=== PATIENT | female | born 1990 | race American Indian/Alaskan Native ===

== ENCOUNTER 2018-06-10 00:58 | Outpatient (CLI) | payer MEDICAID ==
[2018-06-10 01:12] VITALS: BP 122/80
[2018-06-10] MEDS ORDERED: VISTARIL PO ONE (01:58)
--- NOTE | 2018-06-16 22:09 | History and Physical Report ---
History of Present Illness Date of examination: 06/14/18 Date of admission: 06/17/18 Chief complaint: here for cs History of present illness: Pt here for elective primary c/s due to having EFW of 10lbs 14oz.Pt adviseed of all risk. Consents signed and placed on the chart. EDC Confirmation: 06/17/2018 Gestational Age: 24 4/7 weeks Past History : 6 Term Births: 2 Premature Births: 0 Living Children: 2 Para: 2 Mult. Births: 0 Prev : 0 Aborta: 3 Elect. Ab: 3 Spont. Ab: 0 Ectopics: 0 # 1 Delivery date: 2008 Weeks Gestation: term labor: no Delivery type: Infant Sex: Male weight: 5#7 # 2 Delivery date: 2015 Weeks Gestation: term labor: no Delivery type: Sex: Female weight: 7#6 Comments: IOL for GDM # 3 Delivery type: EAB # 4 Delivery type: EAB # 5 Delivery type: EAB Past Medical History: Negative Past Medical History Past Surgical History: D&C x 3 Past Medical History Anesthesia Complications: negative Anemia: negative Autoimmune Disorder: negative Bleeding Disorder: negative Blood Transfusions: negative Breast Disease: negative Diabetes: negative Heart Disease: negative Hypertension: negative Hepatitis/Liver Disease: negative Kidney Disease/UTI: negative Neurologic/Epilepsy/Migraines: negative Phlebitis/Varicosities: negative Psychiatric: negative Pulmonary Disease/Asthma: negative Thyroid Disease: negative Hospitalizations: negative Surgery (Non-manager health): D&C x 3 Abnormal PAP: negative Family Hx: htn - mother, MGM no known hx cancer Social Hx: [place] no ETOH/Drugs/smoking Infection History Hx of STD: CT and Trich HIV Risk Eval: no Hepatitis B Risk Eval: low risk Personal hx. of genital herpes: no Partner hx. of genital herpes: no Rash, Viral, or Febrile illness since last LMP? no Varicella/Chicken Pox Status: Previous Disease Genetic History Congenital Heart Defect: Mom: no Dad: no Gab Disease: Mom: no Dad: no Thalassemia Mom: no Dad: no Neural Tube Defect Mom: no Dad: no Down's Syndrome Mom: no Dad: no Main-Sachs Mom: no Dad: no Sickle Cell Disease/Trait Mom: no Dad: no Hemophilia Mom: no Dad: no Muscular Dystrophy Mom: no Dad: no Cystic Fibrosis Mom: no Dad: no Fariba Chorea Mom: no Dad: no Mental Retardation Mom: no Dad: no Fragile X Mom: no Dad: no Other Genetic/Chromosomal Disorder Mom: no Dad: no Child w/other defect Mom: no Dad: no Enviromental Exposures Xray Exposure: no Medication, drug, or alcohol use since LMP: no Chemical/Other Exposure: no Exposure to Cat Liter: no Hx of Parvovirus (Fifth Disease): no Occupational Exposure to Children: none Active Medications (reviewed today): None Current Allergies (reviewed today): No known allergies. 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 Family/Genetic History: none Social history: no significant social history, - Obstetrical History Expected Date of Delivery: 06/17/18 Actual Gestation: 39 Week(s) 6 Day(s) : 6 Para: 2 Number of Living Children: 2 Medications and Allergies Allergies Allergy/AdvReac Type Severity Reaction Status Date / Time No Known Allergies Allergy Verified 06/10/18 01:34 Home Medications Medication Instructions Recorded Confirmed Last Taken Type No Known Home Medications [No 06/10/18 06/10/18 Unknown History Reported Home Medications] Review of Systems All systems: negative - Vital Signs Vital signs: Vital Signs Pulse BP 96 H 122/80 06/10/18 01:11 06/10/18 01:11 Temp Pulse Resp BP Pulse Ox 98.7 F 96 H 20 122/80 06/10/18 01:24 06/10/18 01:24 06/10/18 01:24 06/10/18 01:24 - Physical Exam Cardiovascular: Normal S1, Normal S2 Lungs: Positive: Normal air movement Abdomen: Positive: normal appearance, soft. Negative: distention, tenderness, guarding Genitourinary (Female): Positive: other (deferred) - Obstetrical FHR: auscultation normal Results All other labs normal. Assessment and Plan - Patient Problems (1) 39 weeks gestation of Status: Acute (2) Macrosomia affecting management of mother Status: Acute Qualifiers: Fetus number: single or unspecified fetus Plan to address problem: -admit and prepare for c/s -consents signed and placed on the chart
[2018-06-16] MEDS ORDERED: PITOCin/NS 20 UNIT/1000ML DRIP 20 UNITS/1,000 ML BAG IV SCH (23:00)
[2018-06-16] MEDS ORDERED: LACTATED RINGERS 1,000 ML IV SCH (23:00)
[2018-06-17] MEDS ORDERED: BICITRA PO ONE (05:00)
[2018-06-17] MEDS ORDERED: ANCEF/STERILE WATER 2 GM/20 ML 2 GM/20 ML SYRINGE IV NR (05:00)
[2018-06-17] MEDS ORDERED: REGLAN IV ONE (05:00)
[2018-06-17] MEDS ORDERED: PEPCID IV ONE (05:00)
[2018-06-17 07:37] LABS: Basophils % (Auto) 0.3 % (0.0-1.8); Eosinophils % (Auto) 0.3 % (0.0-4.3); Hematocrit 32.8 % (30.3-42.9); Hemoglobin 11.4 gm/dl (10.1-14.3); Lymphocytes # (Auto) 2.8 K/mm3 (1.2-5.4); Mean Corpuscular HGB Conc 35 % (30-34); Mean Corpuscular Volume 94 fl (79-97); Monocytes # (Auto) 0.6 K/mm3 (0.0-0.8); Monocytes % (Auto) 6.2 % (0.0-7.3); Platelet Count 268 K/mm3 (140-440); Red Blood Count 3.49 M/mm3 (3.65-5.03); Red Cell Distribution Width 14.1 % (13.2-15.2)
== END 2018-06-10 02:23 | disposition home or self-care (01) ==
LOC: TRG 00:58
PROVIDERS: ATTEND Obstetrics & Gynecology
DX: O62.8 Other abnormalities of forces of labor (principal); O24.410 Gestational diabetes mellitus in pregnancy, diet controlled; Z3A.39 39 weeks gestation of pregnancy
CPT/HCPCS: 59025; Q0177

== ENCOUNTER 2018-06-17 05:39 | Inpatient (IN) | payer MEDICAID ==
[2018-06-17] MEDS ORDERED: LACTATED RINGERS 2,000 ML ONE (07:19)
[2018-06-17] MEDS ORDERED: PEPCID IV ONE ×2 (07:27→07:44)
[2018-06-17] MEDS ORDERED: REGLAN ONE (07:27)
[2018-06-17] MEDS ORDERED: BICITRA ONE (07:28)
[2018-06-17] MEDS ORDERED: PITOCin/NS 20 UNIT/1000ML DRIP 40,000 MILLIUNITS/2,000 ML BAG IV ONE (07:28)
[2018-06-17] MEDS ORDERED: BICITRA PO ONE (07:44)
[2018-06-17] MEDS ORDERED: REGLAN IV ONE (07:44)
[2018-06-17] MEDS ORDERED: LACTATED RINGERS 1,000 ML IV SCH (08:00)
[2018-06-17] MEDS ORDERED: PITOCin/NS 20 UNIT/1000ML DRIP 20 UNITS/1,000 ML BAG IV SCH ×2 (08:00→10:00)
[2018-06-17] MEDS ORDERED: ANCEF/STERILE WATER 2 GM/20 ML 2 GM/20 ML SYRINGE IV NR (08:00)
--- NOTE | 2018-06-17 08:18 | History and Physical Report ---
History of Present Illness Date of examination: 06/17/18 Date of admission: 06/17/18 05:40 Chief complaint: here for c/s History of present illness: History of Present Illness Date of examination: 06/14/18 Date of admission: 06/17/18 Chief complaint: here for cs History of present illness: Pt here for elective primary c/s due to having EFW of 10lbs 14oz.Pt adviseed of all risk. Consents signed and placed on the chart. EDC Confirmation: 06/17/2018 Gestational Age: 24 4/7 weeks Past History : 6 Term Births: 2 Premature Births: 0 Living Children: 2 Para: 2 Mult. Births: 0 Prev : 0 Aborta: 3 Elect. Ab: 3 Spont. Ab: 0 Ectopics: 0 # 1 Delivery date: 2009 Weeks Gestation: term labor: no Delivery type: Sex: Male weight: 5#7 # 2 Delivery date: 2015 Weeks Gestation: term labor: no Delivery type: Infant Sex: Female weight: 7#6 Comments: IOL for GDM # 3 Delivery type: EAB # 4 Delivery type: EAB # 5 Delivery type: EAB Past Medical History: Negative Past Medical History Past Surgical History: D&C x 3 Past Medical History Anesthesia Complications: negative Anemia: negative Autoimmune Disorder: negative Bleeding Disorder: negative Blood Transfusions: negative Breast Disease: negative Diabetes: negative Heart Disease: negative Hypertension: negative Hepatitis/Liver Disease: negative Kidney Disease/UTI: negative Neurologic/Epilepsy/Migraines: negative Phlebitis/Varicosities: negative Psychiatric: negative Pulmonary Disease/Asthma: negative Thyroid Disease: negative Hospitalizations: negative 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 of genital herpes: no Partner hx. of genital herpes: no Rash, Viral, or Febrile illness since last LMP? no Varicella/Chicken Pox Status: Previous Disease Genetic History Congenital Heart Defect: Mom: no Dad: no Gab Disease: Mom: no Dad: no Thalassemia Mom: no Dad: no Neural Tube Defect Mom: no Dad: no Down's Syndrome Mom: no Dad: no Main-Sachs Mom: no Dad: no Sickle Cell Disease/Trait Mom: no Dad: no Hemophilia Mom: no Dad: no Muscular Dystrophy Mom: no Dad: no Cystic Fibrosis Mom: no Dad: no Storden Chorea Mom: no Dad: no Mental Retardation Mom: no Dad: no Fragile X Mom: no Dad: no Other Genetic/Chromosomal Disorder Mom: no Dad: no Child w/other defect Mom: no Dad: no Enviromental Exposures Xray Exposure: no Medication, drug, or alcohol use since LMP: no Chemical/Other Exposure: no Exposure to Cat Liter: no Hx of Parvovirus (Fifth Disease): no Occupational Exposure to Children: none Active Medications (reviewed today): None Current Allergies (reviewed today): No known allergies. 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 Family/Genetic History: none Social history: no significant social history, - Obstetrical History Expected Date of Delivery: 06/17/18 Actual Gestation: 39 Week(s) 6 Day(s) : 6 Para: 2 Number of Living Children: 2 Medications and Allergies Allergies Allergy/AdvReac Type Severity Reaction Status Date / Time No Known Allergies Allergy Verified 06/10/18 01:34 Home Medications Medication Instructions Recorded Confirmed Last Taken Type No Known Home Medications [No 06/10/18 06/10/18 Unknown History Reported Home Medications] Review of Systems All systems: negative - Vital Signs Vital signs: Vital Signs Pulse BP 96 H 122/80 06/10/18 01:11 06/10/18 01:11 Temp Pulse Resp BP Pulse Ox 98.7 F 96 H 20 122/80 06/10/18 01:24 06/10/18 01:24 06/10/18 01:24 06/10/18 01:24 - Physical Exam Cardiovascular: Normal S1, Normal S2 Lungs: Positive: Normal air movement Abdomen: Positive: normal appearance, soft. Negative: distention, tenderness, guarding Genitourinary (Female): Positive: other (deferred) - Obstetrical FHR: auscultation normal Results All other labs normal. 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 History: other (see hpi) Family/Genetic History: other (see hpi) Social history: other (see hpi) - Obstetrical History Expected Date of Delivery: 06/17/18 Actual Gestation: 40 Week(s) 0 Day(s) : 6 Para: 2 Number of Living Children: 2 Medications and Allergies Allergies Allergy/AdvReac Type Severity Reaction Status Date / Time No Known Allergies Allergy Verified 06/10/18 01:34 Home Medications Medication Instructions Recorded Confirmed Last Taken Type No Known Home Medications [No 06/10/18 06/17/18 Unknown History Reported Home Medications] Active Meds: Active Medications Cefazolin Sodium (Ancef/Sterile Water 2 Gm/20 Ml) 2 gm in 20 mls @ 80 mls/hr IV PREOP NR; Protocol Stop: 06/17/18 10:00 Lactated Ringer's (Lactated Ringers) 1,000 mls @ 2,250 mls/hr IV PREOP AURELIANO Stop: 06/18/18 08:27 Oxytocin/Sodium Chloride (Pitocin/Ns 20 Unit/1000ml Drip) 20 units in 1,000 mls @ 0 mls/hr IV TITR AURELIANO Review of Systems All systems: negative - Vital Signs Vital signs: Vital Signs Temp Resp 99.0 F 16 06/17/18 07:46 06/17/18 07:46 Temp Pulse Resp BP Pulse Ox 99.0 F 16 06/17/18 07:46 06/17/18 07:46 - Physical Exam Cardiovascular: Normal S1, Normal S2 Lungs: Positive: Normal air movement Abdomen: Positive: normal appearance, soft. Negative: distention, tenderness, guarding Genitourinary (Female): Positive: other (deferred) - Obstetrical FHR: category 1 Results All other labs normal. Assessment and Plan - Patient Problems (1) 39 weeks gestation of Current Visit: No Status: Acute (2) Macrosomia affecting management of mother Current Visit: No Status: Acute Qualifiers: Fetus number: single or unspecified fetus Trimester: third trimester Qualified Code(s): O36.63X0 - Maternal care for excessive growth, third trimester, not applicable or unspecified Plan to address problem: -admitted -prepare for primary c/s
[2018-06-17] MEDS ORDERED: SUBLIMAZE ONE (08:35)
[2018-06-17] MEDS ORDERED: ANCEF/STERILE WATER 2 GM/20 ML IV ONE (09:12)
[2018-06-17] MEDS ORDERED: NACL 0.9% IR ONE (09:14)
[2018-06-17] MEDS ORDERED: WATER FOR IRRIG STERILE IR ONE (09:14)
--- NOTE | 2018-06-17 09:54 | Operative Report ---
Operative Report Operative Report: Date of procedure: 06/17/2018 Pre-operative diagnosis: 40 weeks gestation Gestational diabetes Suspected macrosomia Post-operative diagnosis: Same Procedure name(s): Primary low transverse section via Pfannenstiel skin incision Surgeon: Dr. Edmonds Apple Sorter: LINN Anesthesia: Epidural EBL: 800 mL Urine output: 250 mL of clear urine out at the end of the procedure Fluids: 1500 mL Findings: Liveborn male weight 10 lbs. 14 oz. Apgars of 8 and 8 at one and 5 minutes delivered in direct OP presentation Grossly normal fallopian tubes and ovaries bilaterally 2 cm anterior fundal fibroid Indications: Patient being followed by maternal- medicine for gestational diabetes and had sonogram that showed an estimated weight of 10 lbs. 14 oz. was recommended. All risks benefits and alternatives were discussed with the patient. Patient declined a trial of labor and desired primary section. Consents were signed and placed on the chart. Procedure: Patient was taking to the operating room. Patient was then prepped and draped in sterile fashion after anesthesia was found to be adequate. A low transverse skin incision was made with the scalpel and carried down to the underlying layer of fascia with the Bovie. The fascia was then incised in the midline and this incision was extended bilaterally with the Bovie. The superior aspect of the fascia was grasped with Mahamed clamps tented upward and dissected off of the anterior rectus muscles with the scalpel. In similar fashion the inferior aspect of the fascia was grasped with Mahamed clamps tented upward and dissected off of the anterior rectus muscles. The rectus muscles were then bluntly divided in the midline. The peritoneum was identified and entered into sharply. The Jose Martin retractor was placed The bladder blade was placed. The bladder flap was created using the Metzenbaum scissors. The bladder blade was replaced. A lower transverse uterine incision was made with the scalpel and extended bilaterally with the bandage scissors. Artificial rupture of membranes was performed yielding clear amniotic fluid. The infant's head was then delivered atraumatically. The anterior shoulder and rest of delivered without difficulty. The umbilical cord was clamped x2. The cord was cut. The infant was then placed in sterile bassinet. The placenta was manually extracted in its entirety. The uterus was exteriorized and cleared of all clots and debris. The uterine incision was closed using 0 Vicryl in a running locking fashion. A second imbricating layer of the same suture was then created. The posterior cul-de-sac was copiously irrigated. The uterus was returned to the abdomen. The gutters were also irrigated. The Jose Martin retractor was removed from the abdomen. The anterior rectus muscles were reapproximated using 3-0 Vicryl. The anterior rectus fascia was reapproximated using 0 Vicryl in a running fashion. The subcuticular fat was reapproximated using 2-0 Vicryl in a running fashion. The skin was reapproximated with 4-0 Monocryl in a subcuticul ar stitch. The patient tolerated the procedure well. Sponge lap and needle counts were all correct x3. Patient was taken to the recovery room awake and in stable condition.
[2018-06-17] MEDS ORDERED: ZOFRAN IV PRN ×2 (09:55→10:16)
[2018-06-17] MEDS ORDERED: TUCKS PAD TP PRN (09:55)
[2018-06-17] MEDS ORDERED: LANSINOH TP PRN (09:55)
[2018-06-17] MEDS ORDERED: MYLICON PO PRN (09:55)
[2018-06-17] MEDS ORDERED: NARCAN 0.4 MG/1 ML IV PRN ×3 (09:55→10:16)
[2018-06-17] MEDS ORDERED: SODIUM CHLORIDE FLUSH SYRINGE 10 ML IV NR ×2 (10:00→11:00)
[2018-06-17] MEDS ORDERED: D5LR 1,000 ML IV SCH (10:00)
[2018-06-17] MEDS ORDERED: MORPHINE PCA 30MG/30ML IV SCH (10:00)
[2018-06-17] MEDS ORDERED: PHENERGAN PR PRN (10:16)
[2018-06-17] MEDS ORDERED: PHENERGAN PO PRN (10:16)
[2018-06-17] MEDS ORDERED: TORADOL IV NR (10:17)
--- NOTE | 2018-06-17 10:20 | Post Anesthesia Evaluation ---
- Post Anesthesia Evaluation Patient Participated: Yes Airway Patent: Yes Stable Respiratory Function: Yes Nausea/Vomiting: No Temp > 96.8F: Yes Pain Manageable: Yes Adequeate Hydration: Yes Anesthesia Complications: No Block Receding Appropriately: Yes Patient on Ventilator: No Other Comments: Post op orders placed. Patient awake and oriented x 3. Spinal level now at T10 level.
[2018-06-17] MEDS: DILAUDID IV PRN ×2 (11:03→11:12)
[2018-06-17] MEDS: NORCO 5/325 PO PRN ×2 (13:50→20:18)
[2018-06-17] MEDS: ANCEF/NS 1 GM/50 ML 1 GM/50 ML BAG IV SCH (17:16)
[2018-06-17] MEDS: TORADOL IV PRN ×2 (17:17→23:14)
[2018-06-17 23:23] LABS: Hematocrit 27.3 % (30.3-42.9); Hemoglobin 9.3 gm/dl (10.1-14.3)
[2018-06-18] MEDS: NORCO 5/325 PO PRN ×4 (03:26→23:40)
[2018-06-18] MEDS: ANCEF/NS 1 GM/50 ML 1 GM/50 ML BAG IV SCH (04:10)
[2018-06-18] MEDS ORDERED: BOOSTRIX IM ONE (06:00)
--- NOTE | 2018-06-18 07:31 | Progress Note ---
Assessment and Plan Patient c/o pain medication not improving pain between doses, states "it wears off too quickly." Will increase dose to 2 tabs q6. Encouraged ambulation and shower today. rn will remove dressing after shower. encouraged breast feeding before giving infant bottle. afebrile, b/p 120-130/70-80 (one outlier 140/96 yesterday.) H&H 9.3/27.3 - asymptomatic for anemia, anemia from acute blood loss. Continue postop pathway. - Patient Problems (1) delivery delivered Current Visit: Yes Status: Acute (2) Anemia due to acute blood loss Current Visit: Yes Status: Acute Subjective - Subjective Date of service: 06/18/18 Principal diagnosis: postop day #1 s/p primary c/s Patient reports: appetite normal, voiding normally, flatus, pain poorly controlled (pt reports one norco does not keep pain at manageble level), ambulating normally, no dizzy ambulation, no nauseated : doing well, bottle feeding (breast and bottle feeding) Objective - Vital Signs Latest vital signs: Vital Signs Temp Pulse Resp BP BP Pulse Ox 06/18/18 05:17 98.0 F 81 20 128/85 100 06/18/18 00:49 98.3 F 80 18 134/89 99 06/17/18 20:22 98.1 F 82 18 123/83 100 06/17/18 17:00 98.2 F 81 18 138/79 06/17/18 12:00 98.1 F 67 16 140/96 99 06/17/18 11:05 97.8 F 68 20 131/84 99 06/17/18 10:50 70 18 132/87 100 06/17/18 10:35 68 14 128/88 99 06/17/18 10:30 70 16 133/82 99 06/17/18 10:25 68 15 138/89 100 06/17/18 10:20 70 14 131/94 99 06/17/18 10:15 62 14 140/80 06/17/18 10:10 65 14 138/83 06/17/18 10:06 86 105/57 06/17/18 10:05 97.8 F 68 18 133/88 06/17/18 07:46 99.0 F 16 Intake and Output 06/17/18 06/17/18 06/18/18 15:59 23:59 07:59 Intake Total 1999 370 410 Output Total 550 2900 500 Balance 6955 -1938 -89 Intake: IV 1999 50 50 ANCEF/NS 1 GM/50 ML 1 gm 50 50 In 50 ml @ 100 mls/hr IV Q[facility]H [facility] Rx#:[id number] Oral 320 Intake, Free Water 360 Output: Urine 550 2900 500 Indwelling Catheter 2900 Void 0 500 Other: Total, Intake Amount 320 Total, Output Amount 2000 500 # Voids Void 1 Estimated Blood Loss 800 - Exam Breasts: Present: normal, Cardiovascular: Present: Regular rate Lungs: Present: Clear to auscultation, Normal air movement Abdomen: Present: normal appearance, soft Vulva: both: normal Uterus: Present: normal - Labs Labs: Abnormal lab results 06/17/18 Range/Units 22:06 Hgb 9.3 L (10.1-14.3) gm/dl Hct 27.3 L (30.3-42.9) %
[2018-06-18] MEDS: TORADOL IV PRN (07:49)
[2018-06-18] MEDS: FEOSOL PO SCH ×2 (07:50→11:13)
[2018-06-18] MEDS: PRENATAL VITAMIN PO SCH ×2 (07:50→11:13)
[2018-06-19] MEDS: NORCO 5/325 PO PRN ×3 (05:58→18:45)
--- NOTE | 2018-06-19 08:11 | Progress Note ---
Assessment and Plan POD2 s/p c/s. Patient sitting on bedside holding . She reports her pain has been moderate, that CNM yesterday had to increase her dose of [place] and that is helping some. Suggested patient try ibuprofen to help alleviate the pain. Also encouraged patient to ambulate and continue use of IS. Incision is well approximated, healing well, no drainage, no s/s of infection. Fundus is firm, U/1, bleeding is scant. Patient reports breast feeding is going well, no breast complaints. Attempting to locate night time nanny RN to assess PM vital signs as last documented VS is at 1500 yesterday, 130s/90s. Patient denies any headaches, visual disturbances, RUQ pain. Will monitor vs today. Patient desires discharge tomorrow. Continue post op pathway. Subjective - Subjective Principal diagnosis: postop day #2 s/p primary c/s Patient reports: appetite normal, voiding normally, flatus, ambulating normally : doing well Objective - Vital Signs Latest vital signs: Vital Signs Temp Pulse Resp BP Pulse Ox 06/18/18 15:39 98.6 F 74 20 138/96 100 06/18/18 08:45 98.4 F 82 20 131/93 99 Intake and Output 06/18/18 06/18/18 06/19/18 15:59 23:59 07:59 Intake Total 360 120 Balance 360 120 Intake: Oral 360 120 Other: Total, Intake Amount 360 120 # Voids Void 1 1 - Exam Breasts: Present: normal Cardiovascular: Present: Regular rate, Normal S1 Lungs: Present: Clear to auscultation Abdomen: Present: normal appearance, soft Vulva: both: normal Uterus: Present: normal, firm Extremities: Present: normal Incision: Present: normal, dry, intact
--- NOTE | 2018-06-19 08:41 | Event Note ---
Date: 06/19/18 Pre op H&H and type and screen not available for view in [employer]. Spoke with blood bank in laboratory and they gave a verbal result of pre op H&H of 11.4/32.8. Fax number given for [facility], she states she will fax type and screen and h&H results to unit.
[2018-06-19] MEDS: FEOSOL PO SCH (11:47)
[2018-06-19] MEDS: PRENATAL VITAMIN PO SCH (11:47)
[2018-06-19] MEDS: IBUPROFEN PO PRN (18:45)
[2018-06-20] MEDS: NORCO 5/325 PO PRN ×2 (05:52→12:45)
--- NOTE | 2018-06-20 06:30 | Discharge Summary ---
Providers - Providers Date of Admission: 06/17/18 05:40 Date of discharge: 06/20/18 (pt desires d/c) Attending physician: JEAN PEDRAZA Primary care physician: JEAN PEDRAZA Hospitalization Reason for admission: section Delivery: Procedure: primary low transverse Episiotomy: none Laceration: none Incision: normal, dry, intact Other procedures: none complications: none Discharge diagnosis: IUP at term delivered [place] baby: male Hospital course: uncomplicated section Pt OOB caring for NB VSS FF below umb Lochia scant Incision D&I Asymptomatic anemia Doing well s/p section P: d/c today with instructions RTO 1 week post op care Condition at discharge: Good Disposition: DC-01 TO HOME OR SELFCARE - Discharge Diagnoses (1) delivery delivered Status: Acute Comment: 1 week postop care Plan - Discharge Medications Prescriptions: Docusate Sodium [Colace] 100 mg PO BID PRN #60 capsule PRN Reason: Constipation Lidocain2.5%/Prilocai2.5% [Emla] 1 gm TP ONCE #1 tube Ferrous Sulfate 325 mg PO DAILY #30 tablet. Ibuprofen 800 mg PO Q6HR #30 tablet oxyCODONE /ACETAMINOPHEN [Percocet 5/325] 1 tab PO Q4HR #30 tab - Provider Discharge Summary Activity: routine, no sex for 6 weeks, no heavy lifting 4 weeks, no strenuous exercise Diet: routine Instructions: routine Additional instructions: [] Smoking cessation referral if applicable(refer to patient education folder for contact #) [] Refer to [facility]'s [facility] Booklet Call your doctor immediately for: * Fever > 100.5 * Heavy vaginal bleeding ( >1 pad per hour) * Severe persistent headache * Shortness of breath * Reddened, hot, painful area to leg or breast * Drainage or odor from incision. * Keep incision clean and dry at all times and follow doctor's instructions regarding bathing/showering - Follow up plan Follow up: JEAN PEDRAZA MD [Primary Care Provider] - 06/24/18 (Congratulations! Please keep your appointment for your postoperative care and your son's circumcision. Bring the EMLA cream with you to his visit. Do not use at home. Take medications as prescribed. [phone])
[2018-06-20] MEDS: FEOSOL PO SCH (10:37)
[2018-06-20] MEDS: PRENATAL VITAMIN PO SCH (10:37)
[2018-06-20] MEDS: IBUPROFEN PO PRN (10:38)
[2018-06-20 14:34] VITALS: BP 130/87
== END 2018-06-20 21:27 | disposition home or self-care (01) | DRG 765 ==
LOC: TRG 05:39 → APU 05:40 → OB 11:53
PROVIDERS: ADMIT Obstetrics & Gynecology; ATTEND Obstetrics & Gynecology
PROC: 10D00Z1 Extraction of Products of Conception, Low, Open Approach (ICD-10-PCS; principal; 2018-06-17)
DX: O36.63X0 Maternal care for excessive fetal growth, third trimester, not applicable or unspecified (principal); D62 Acute posthemorrhagic anemia; O24.429 Gestational diabetes mellitus in childbirth, unspecified control; Z3A.40 40 weeks gestation of pregnancy; Z37.0 Single live birth; O99.02 Anemia complicating childbirth
CPT/HCPCS: 36415; 85014; 85018; 85025; 86850; 86900; 86901; 88307; G0378; A6250; J0690; J1170; J1885; J2270; J2590; J2765; J3010; J7120; J7121